=== PATIENT | female | born 1990 | race Caucasian/White ===

== ENCOUNTER 2017-08-06 01:08 | Emergency (ER) | payer BC ==
[~2017-08-06] VITALS: Ht 167.6 cm; Wt 82.0 kg
[~2017-08-06 01:08] MED LIST: CELE20TA PO; LANTUSP SQ; NOVOLOGP2 SQ
[2017-08-06 01:11] VITALS: BP 142/76; PULSE 121; RESP 18; TEMP 98.5; O2SAT 99
[2017-08-06] MEDS ORDERED: SPIR25TA PO (01:19)
[2017-08-06] MEDS ORDERED: LANTUS2P SQ (01:19)
[2017-08-06] MEDS ORDERED: LEVO25TA4 PO (01:19)
[2017-08-06] MEDS ORDERED: FLUO-1 PO (01:19)
[2017-08-06] MEDS ORDERED: NOVOLOGP2 SQ (01:19)
[2017-08-06] MEDS ORDERED: BIRTH CONTROL (01:19)
[2017-08-06] MEDS ORDERED: SODIUM CHLOR 0.9% 1000 ML INJ 1,000 ML IV ONE (02:00)
[2017-08-06] MEDS ORDERED: ONDANSETRON HCL 4 MG/2 ML VIAL IV ONE (02:00)
--- NOTE | 2017-08-06 02:12 | RADRPT ---
EXAM DATE/TIME: 08/06/2017 01:52 [place] COMPARISON: No previous studies available for comparison. INDICATIONS : Shortness of breath. MEDICAL HISTORY : None. SURGICAL HISTORY : None. ENCOUNTER: Initial ACUITY: 1 day PAIN SCORE: 0/10 LOCATION: Bilateral chest FINDINGS: A single view of the chest demonstrates the lungs to be symmetrically aerated without evidence of mas s, infiltrate or effusion. The cardiomediastinal contours are unremarkable. Osseous structures are intact. CONCLUSION: 1. No acute cardiopulmonary disease. Chicho Ga MD on August 06, 2017 at 2:11 Board Certified Radiologist. This report was verified electronically.
[2017-08-06 02:21] VITALS: BP 137/81; PULSE 106; RESP 24; O2SAT 100
--- NOTE | 2017-08-06 02:26 | PD ---
HPI Chief Complaint: GI Complaint Time Seen by Provider: 01:48 Travel History International Travel<30 days: No Contact w/Intl Traveler<30days: No Traveled to known affect area: No History of Present Illness HPI The patient is a 27 year old female who presents to the [facility] emergency department with a history of cocaine use that began again one month ago. She had been clean of use for 6 years prior to this. Prior to that she had used for 4 years. She denies ever going into rehabilitation or drug abuse previously. Over the last 48 hours she has also been binge drinking alcohol heavily. She then began to use an excessive amount of cocaine. She injects the cocaine. She used 80 dollars worth and began to feel nauseated and vomited many times over an hour. The emesis consisted of bile and had some blood mixed in it. She felt anxious with chest tightness and palpitations. She felt short of breath. The patient reports having a history of anxiety was exacerbated by the cocaine use. The patient denies having any suicidal or homicidal ideations. On review of systems, the patient denies having any known recent fevers, cough, congestion, neck pain, abdominal pain, diarrhea, urinary symptoms, or neurologic symptoms. [facility] Past Medical History Narrative Medical The patient's past medical history is significant for diabetes-dx in 1999, polysubstance abuse, depression, anxiety, acne, hypothyroidism. PCP: Dr. Hopson. Arthritis: No Asthma: No Autoimmune Disease: No Blood Disorders: No Anxiety: No Depression: Yes Heart Rhythm Problems: No Cancer: No Cardiovascular Problems: No High Cholesterol: No Chemotherapy: No Chest Pain: No Congestive Heart Failure: No COPD: No Cerebrovascular Accident: No Diabetes: Yes (insulin dependent) Patient Takes Glucophage: No Diminished Hearing: No Endocrine: No GERD: No Glaucoma: No Genitourinary: No Headaches: No Hepatitis: No Hiatal Hernia: No Hypertension: No Immune Disorder: No Kidney Stones: No Musculoskeletal: No Neurologic: No Psychiatric: No Reproductive: No Respiratory: No Migraines: No Myocardial Infarction: No Radiation Therapy: No Renal Failure: No Seizures: No Sickle Cell Disease: No Sleep Apnea: No Thyroid Disease: No Ulcer: No Tetanus Vaccination: Unknown Influenza Vaccination: No ?: Not LMP: 2 WEEKS AGO : 0 Past Surgical History Narrative Surgical The patient's past surgical history is significant for tonsillectomy. Abdominal Surgery: No AICD: No Appendectomy: No Arteriovenous Shunt: No Cardiac Surgery: No Cholecystectomy: No Ear Surgery: No Endocrine Surgery: No Eye Surgery: No Genitourinary Surgery: No Gynecologic Surgery: No Insulin Pump: No Joint Replacement: No Oral Surgery: Yes (TONSILLECTOMY 2006) Pacemaker: No Thoracic Surgery: No Tonsillectomy: Yes Other Surgery: Yes Social History Alcohol Use: Yes (last drink on ,prior to this was drinking daily for 1 1/2months, 2-3 x months) Tobacco Use: Yes ("5 cigarettes") Substance Use: Yes (meth iv for 2yrs,last used 12/2009 crack for 1 1/2months, last used 04/23/10) Allergies-Medications (Allergen,Severity, Reaction): Coded Allergies: No Known Allergies (Verified Adverse Reaction, Unknown, 08/06/17) Reported Meds & Prescriptions Reported Meds & Active Scripts Active Reported Lantus Inj (Insulin Glargine) 1,000 Unit/10 Ml Vial 13.74 Unit SQ HS Novolog Inj (Insulin Aspart) 1,000 Unit/10 Ml Vial 0 SQ DIRECTED Sliding Scale as directed. [ Control] Prozac (Fluoxetine HCl) 10 Mg Cap 10 Mg PO DAILY Levothyroxine (Levothyroxine Sodium) 25 Mcg Tab 25 Mcg PO DAILY Spironolactone 25 Mg Tab 12.5 Mg PO DAILY Review of Systems Except as stated in HPI: all other systems reviewed are Neg General / Constitutional: No: Fever Eyes: No: Visual changes HENT: No: Headaches Cardiovascular: Positive: Chest Pain or Discomfort, Palpitations, No: Dyspnea on exertion Respiratory: Positive: Shortness of Breath Gastrointestinal: Positive: Nausea, Vomiting, Indigestion, No: Diarrhea, Abdominal Pain, Changes in Bowel Habits, Loss of Appetite Genitourinary: No: Dysuria Musculoskeletal: No: Pain Skin: No Rash Neurologic: No: Weakness, Focal Abnormalities, Change in Mentation, Slurred Speech, Sensory Disturbance Psychiatric: Positive: Anxiety, Substance Abuse, No: Depression Endocrine: No: Polydipsia Hematologic/Lymphatic: No: Easy Bruising Physical Exam Narrative General: The patient is a well-developed well-nourished female in no acute distress. Head and Neck exam: Head is normocephalic atraumatic. Eyes: EOMI, pupils are equal round and reactive to light. Nose: Midline septum with pink mucous membranes Mouth: Dentition unremarkable. Moist mucus membranes. Posterior oropharynx is not erythematous. No tonsillar hypertrophy. Uvula midline. Airway patent. Neck: No palpable lymphadenopathy. No nuchal rigidity. No thyromegaly. Cardiovascular: Sinus tachycardia in 100s without murmurs, gallops, or rubs. No pulse deficit to the extremities on simultaneously auscultation and palpation of her radial artery. Lungs: Clear to auscultation bilaterally. No wheezes, rhonchi, or rales. Abdomen: Soft, without tenderness to palpation in all 4 quadrants of the abdomen. No guarding, rebound, or rigidity. Normal bowel sounds are audible. No tenderness on palpation of McBurney's point. Extremities: No clubbing, cyanosis, or edema. 2+ pulses in all 4 extremities. No calf tenderness on palpation. Back: No spinous process tenderness to palpation. No costovertebral angle tenderness to palpation. Neurologic Exam: Grossly nonfocal. Skin Exam: No rash noted. Intact skin that is warm and dry. Data Data Last Documented VS Vital Signs Date Time Temp Pulse Resp B/P (MAP) Pulse Ox O2 Delivery O2 Flow Rate FiO2 08/06/17 02:21 106 24 137/81 (99) 100 Room Air 08/06/17 01:11 98.5 Orders Orders Complete Blood Count With Diff (08/06/17 01:48) Comprehensive Metabolic Panel (08/06/17 01:48) Prothrombin Time / Inr (Pt) (08/06/17:48) Act Partial Throm Time (Ptt) (08/06/17 01:48) Lipase (08/06/17 01:48) Urinalysis - C+S If Indicated (08/06/17 01:48) Magnesium (Mg) (08/06/17 01:48) Chest, Single Ap (08/06/17:48) Iv Access Insert/Monitor (08/06/17 01:48) Ecg Monitoring (08/06/17 01:48) Oximetry (08/06/17 01:48) Type And Screen (08/06/17 01:48) Ed Urine Pregnancytest Poc (08/06/17 01:48) Sodium Chlor 0.9% 1000 Ml Inj (Ns 1000 M (08/06/17 02:00) Ondansetron Inj (Zofran Inj) (08/06/17 02:00) Electrocardiogram (08/06/17 03:01) Creatine Kinase (Cpk) (08/06/17 03:01) Ckmb (Isoenzyme) Profile (08/06/17 03:01) Troponin I (08/06/17 03:01) Lorazepam Inj (Ativan Inj) (08/06/17 03:15) Pantoprazole Inj (Protonix Inj) (08/06/17 03:30) CKMB (08/06/17 02:00) CKMB% (08/06/17 02:00) Labs Laboratory Tests Test 08/06/17 02:00 White Blood Count 11.9 TH/MM3 Red Blood Count 3.91 MIL/MM3 Hemoglobin 12.5 GM/DL Hematocrit 36.4 % Mean Corpuscular Volume 93.1 FL Mean Corpuscular Hemoglobin 32.0 PG Mean Corpuscular Hemoglobin Concent 34.4 % Red Cell Distribution Width 13.4 % Platelet Count 247 TH/MM3 Mean Platelet Volume 8.3 FL Neutrophils (%) (Auto) 83.3 % Lymphocytes (%) (Auto) 13.0 % Monocytes (%) (Auto) 3.3 % Eosinophils (%) (Auto) 0.1 % Basophils (%) (Auto) 0.3 % Neutrophils # (Auto) 9.9 TH/MM3 Lymphocytes # (Auto) 1.5 TH/MM3 Monocytes # (Auto) 0.4 TH/MM3 Eosinophils # (Auto) 0.0 TH/MM3 Basophils # (Auto) 0.0 TH/MM3 CBC Comment DIFF FINAL Differential Comment Prothrombin Time 10.7 SEC Prothromb Time International Ratio 1.0 RATIO Activated Partial Thromboplast Time 26.1 SEC Urine Color COLORLESS Urine Turbidity CLEAR Urine pH 5.5 Urine Specific [place] 1.002 Urine Protein NEG mg/dL Urine Glucose (UA) 1000 mg/dL Urine Ketones NEG mg/dL Urine Occult Blood TRACE Urine Nitrite NEG Urine Bilirubin NEG Urine Urobilinogen LESS THAN 2.0 MG/DL Urine Leukocyte Esterase LARGE Urine RBC 21 /hpf Urine WBC 1 /hpf Urine Squamous Epithelial Cells 2 /hpf Urine Renal Epithelial Cells 2 /hpf Urine Bacteria RARE /hpf Microscopic Urinalysis Comment CULT NOT INDICATED Blood Urea Nitrogen 11 MG/DL Creatinine 0.95 MG/DL Random Glucose 267 MG/DL Total Protein 7.8 GM/DL Albumin 3.9 GM/DL Calcium Level 8.6 MG/DL Magnesium Level 1.8 MG/DL Alkaline Phosphatase 72 U/L Aspartate Amino Transf (AST/SGOT) 30 U/L Alanine Aminotransferase (ALT/SGPT) 25 U/L Total Bilirubin 0.4 MG/DL Sodium Level 137 MEQ/L Potassium Level 4.2 MEQ/L Chloride Level 105 MEQ/L Carbon Dioxide Level 22.5 MEQ/L Anion Gap 10 MEQ/L Estimat Glomerular Filtration Rate 70 ML/MIN Total Creatine Kinase 213 U/L Creatine Kinase MB 1.5 NG/ML Creatine Kinase MB % 0.7 % Troponin I LESS THAN 0.02 NG/ML Lipase 88 U/L MDM Medical Decision Making Medical Screen Exam Complete: Yes Emergency Medical Condition: Yes Medical Record Reviewed: Yes Interpretation(s) Last Impressions Chest X-Ray 08/06/17 0148 Signed Impressions: Service Date/Time: Sunday, August 06, 2017 01:52 - CONCLUSION: 1. No acute cardiopulmonary disease. Chicho Ga MD Differential Diagnosis Acid reflux, versus pancreatitis, versus anxiety disorder, acute coronary syndrome Narrative Course During the course of the patients emergency department visit, the patients history, examination, and differential diagnosis were reviewed with the patient. The patient was placed on a manager cardiac cath with oximetry and frequent blood pressure monitoring. The patient had IV access obtained and blood work sent for analysis. The patient has an ECG done that shows a sinus tachycardia rate of 110, no acute ST segment elevation or depression. The patient was initially provided normal saline 1 L IV fluid bolus, Zofran 4 mg IV. Ativan 0.5 mg IV for anxiety. The patients laboratory studies were reviewed and remarkable for a white count of 11.9, hemoglobin 12.5, platelets 247 with neutrophils 83.3. CMP is remarkable for a glucose of 267, CPK 213, MB percent 0.7, troponin I less than, lipase 88, PT PTT within normal limits. Urinalysis shows 2000 glucose, trace occult blood, large leukocyte esterase, RBCs 21, 1 WBC, rare bacteria, culture not indicated. Radiology studies were reviewed and remarkable for a chest x-ray that shows no acute cardiopulmonary disease. The patient has had no further episodes of vomiting while being observed in the emergency department. The patient was given information regarding the local detoxification center, the [facility]. The patient will be discharged home with a prescription for Protonix. The patient is resting comfortably and feels better, is alert and in no distress. The patients results and examination findings were discussed with the patient. The repeat examination is unremarkable and benign. The history, exam, diagnostic testing, and current condition do not suggest any significant pathology to warrant further testing, continued ED treatment, admission, or surgical evaluation at this point. The vital signs have been stable. The patient does not have uncontrollable pain, intractable vomiting, or other significant symptoms. The patient's condition is stable and appropriate for discharge. The patient will pursue further outpatient evaluation with a primary care physician or other designated or consulting physician as indicated in the discharge instructions. The patient expressed understanding and was agreeable with this plan. Diagnosis Primary Impression: Polysubstance abuse Additional Impressions: Cocaine use Gastroesophageal reflux Qualified Codes: K21.9 - Gastro-esophageal reflux disease without esophagitis Referrals: Primary Care Physician 2 days [facility] as needed Patient Instructions: Gastroesophageal Reflux Disease (ED), General Instructions, Polysubstance Abuse (ED) Med/Other Pt SpecificInfo: Prescription(s) given Scripts Pantoprazole (Protonix) 40 Mg Tab 40 MG PO DAILY for Reflux, #14 TAB 0 Refills Prov: Nichelle Garcia MD 08/06/17 Disposition: 01 DISCHARGE HOME Condition: Stable Nichelle Garcia MD Aug 06, 2017 02:26
[2017-08-06 02:42] LABS: AUTOMATED NEUTROPHIL # 9.9 TH/MM3 (1.8-7.7); BASOPHIL % 0.3 % (0.0-2.0); EOSINOPHIL % 0.1 % (0.0-4.0); HEMATOCRIT 36.4 % (35.0-46.0); HEMO FLAGS DIFF FINAL; LYMPHOCYTE # 1.5 TH/MM3 (1.0-4.8); MEAN CELL VOLUME 93.1 FL (80.0-100.0); MEAN CORPUSCULAR HGB CONC 34.4 % (32.0-36.0); MONO % 3.3 % (0.0-8.0); NEUT % 83.3 % (16.0-70.0); PLATELET COUNT 247 TH/MM3 (150-450); RED BLOOD COUNT 3.91 MIL/MM3 (4.00-5.30); RED CELL DISTRIBUTION WIDTH 13.4 % (11.6-17.2); WHITE BLOOD COUNT 11.9 TH/MM3 (4.0-11.0)
[2017-08-06 02:52] LABS: APTT (PATIENT) 26.1 SEC (24.3-30.1); BACTERIA, URINE RARE /hpf; BLOOD, URINE TRACE (NEG); COMMENT (UR) CULT NOT INDICATED; CULTURE IF INDICATED CULT NOT INDICATED; GLUCOSE,URINE 1000 mg/dL (NEG); KETONE, URINE NEG (NEG); NITRITE,URINE NEG (NEG); PH, URINE 5.5 (5.0-8.5); PROTHROMBIN TIME - PATIENT 10.7 SEC (9.8-11.6); RENAL EPITHELIAL CELLS 2 /hpf; SQUAMOUS EPITHELIAL CELL URINE 2 /hpf (0-5); URINE COLOR COLORLESS (YELLW/STRAW)
[2017-08-06 03:15] LABS: ALKALINE PHOSPHATASE 72 U/L (45-117); BLOOD UREA NITROGEN 11 MG/DL (7-18); TOTAL BILIRUBIN ADULT 0.4 MG/DL (0.2-1.0)
[2017-08-06] MEDS ORDERED: LORazepam 2 MG/ML VIAL IV PUSH ONE (03:15)
[2017-08-06 03:26] LABS: ALT (GPT) 25 U/L (10-53); ANION GAP 10 MEQ/L (5-15); AST (GOT) 30 U/L (15-37); BICARBONATE 22.5 MEQ/L (21.0-32.0); CHLORIDE 105 MEQ/L (98-107); GLOMERULAR FILTRATION RATE 70 ML/MIN (>89); MAGNESIUM 1.8 MG/DL (1.5-2.5); SODIUM (NA) 137 MEQ/L (136-145)
[2017-08-06] MEDS ORDERED: PANTOPRAZOLE SODIUM 40 MG VIAL IV PUSH ONE (03:30)
[2017-08-06 03:32] LABS: POTASSIUM 4.2 MEQ/L (3.5-5.1)
[2017-08-06 04:27] LABS: CREATINE KINASE 213 U/L (26-192)
[2017-08-06 04:39] LABS: CKMB 1.5 NG/ML (0.5-3.6)
[2017-08-06] MEDS ORDERED: PROT40TA PO (04:47)
--- NOTE | 2017-08-06 09:33 | EKG ---
Date Performed: 08/06/2017 Time Performed: 03:30:18 PTAGE: 27 years EKG: SINUS TACHYCARDIA POSSIBLE LEFT ATRIAL ENLARGEMENT ABNORMAL RHYTHM ECG PREVIOUS TRACING : 10/24/2009 20.20 DOCTOR: Javy Ornelas Interpretating Date/Time 08/06/2017 09:32:03
== END 2017-08-06 05:36 | disposition home or self-care (01) ==
LOC: NEPE 01:08
DX: F14.90 Cocaine use, unspecified, uncomplicated (principal); K21.9 Gastro-esophageal reflux disease without esophagitis; E11.9 Type 2 diabetes mellitus without complications; E03.9 Hypothyroidism, unspecified; Z79.4 Long term (current) use of insulin; Z79.899 Other long term (current) drug therapy
CPT/HCPCS: 71010; 80053; 81001; 82550; 82552; 83690; 83735; 84484; 84703; 85025; 85610; 85730; 86850; 86900; 86901; 93005; 96374; 96375; 99285; C9113; J2060; J2405; J7030